=== PATIENT | female | born 1945 | race Caucasian/White ===

== ENCOUNTER 2016-05-06 09:41 | Outpatient (CLI) | payer OTHER ==
[~2016-05-06 09:41] MED LIST: ATENOLOL100 MG PO; ESTRADIOL0.5 MG PO; HYDROCHLOROTHIA25 MG PO; VITAMIN D-31000 UNIT PO
--- NOTE | 2016-05-12 11:30 | DIAGNOSTIC IMAGING REPORT ---
PROCEDURE: MG BILATERAL SCREENING W/CAD INDICATION: SCREENING TECHNIQUE: Bilateral CC and MLO digital views. COMPARISON: Bilateral mammograms 05/04/2015, right mammogram and 04/22/2014 and bilateral mammogram 03/31/2014. FINDINGS: Computer-aided detection applied. Dense pattern with scattered dystrophic calcifications. No change. IMPRESSION: 1. Negative mammogram RESULT CODE: 1- Negative. A. A negative report should not delay biopsy if a dominant or clinically suspicious mass is present. 10-15% of cancers are not identified by x-ray. B. A negative report may reinforce clinical impression. C. Adenosis and dense breasts may obscure an underlying neoplasm. D. False positive reports average 6-10%. E.. A yearly screening mammogram is recommended. A reminder letter will be scheduled.
== END 2016-05-06 23:00 | disposition home or self-care (01) ==
LOC: MAM SRH 09:41
DX: Z12.31 Encounter for screening mammogram for malignant neoplasm of breast (principal)